=== PATIENT | female | born 2000 | race Hispanic/Latino ===

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

== ENCOUNTER 2021-11-05 00:57 | Inpatient (IN) | payer OTHER ==
[~2021-11-05] VITALS: Ht 157.5 cm; Wt 77.6 kg
[2021-11-05 01:27] LABS: APPEARANCE,URINE Clear (CLEAR); BILIRUBIN,URINE Negative (NEGATIVE); COLOR,URINE Yellow (YELLOW); GLUCOSE, URINE (UA) Negative (NEGATIVE); KETONES,URINE Negative (NEGATIVE); LEUKOCYTE ESTERASE ,URINE Negative (NEGATIVE); NITRATE,URINE Negative (NEGATIVE); OCCULT BLOOD,URINE Negative (NEGATIVE); PROTEIN,URINE Negative (NEGATIVE)
[2021-11-05] MEDS ORDERED: ONDANSETRON 4MG INJ IVP ONE (01:30)
[2021-11-05] MEDS ORDERED: 0.9%NACL 1000ML 1,000 ML IV ONE (01:30)
[2021-11-05] MEDS ORDERED: KETOROLAC 30MG VIAL (30MG/ML) IV ONE (01:30)
[2021-11-05 01:32] LABS: HCG,QUAL RESULT NEGATIVE (NEGATIVE)
[2021-11-05 01:37] LABS: BASOPHILS % (AUTO) 0.5 % (0.0-5.0); EOSINOPHILS % (AUTO) 1.5 % (0.0-8.0); HEMATOCRIT 39.4 % (36-48); LYMPHOCYTES % (AUTO) 32.6 % (21.0-51.0); MEAN CORPUSCULAR HEMOGLOBIN 28.5 pg (27.0-33.0); MEAN CORPUSCULAR HGB CONC 32.7 g/dL (32.0-36.0); MONOCYTES % (AUTO) 6.8 % (3.0-13.0); NEUTROPHILS % (AUTO) 58.4 % (40.0-77.0); PLATELET COUNT (AUTO) 334 K/uL (130-400); RED BLOOD CELL COUNT(AUTO) 4.53 MIL/uL (4.00-5.50); RED CELL DISTRIBUTION WIDTH 13.3 % (11.0-15.5); WHITE BLOOD COUNT (AUTO) 12.4 K/uL (4.8-10.8)
[2021-11-05 01:54] LABS: CREATININE 0.7 mg/dL (0.5-1.5); POTASSIUM 3.6 mmol/L (3.5-5.1)
[2021-11-05 01:57] LABS: ALBUMIN 3.5 g/dL (3.5-5.0); BILIRUBIN,TOTAL 0.2 mg/dL (0.2-1.0); TOTAL PROTEIN, SERUM 7.2 g/dL (6.0-8.3)
[2021-11-05] MEDS ORDERED: ZOSYN 3.375GM +NS 50ML IV SCH (02:30)
[2021-11-05] MEDS: LACTATED RINGERS 1000ML 1,000 ML IV SCH ×3 (03:03→17:50)
[2021-11-05 07:45] VITALS: BP 110/75
[2021-11-05 11:45] VITALS: BP 115/62
[2021-11-05] MEDS: MORPHINE 2 MG SYG IVP PRN (13:22)
[2021-11-05 16:10] VITALS: BP 100/59
[2021-11-05 19:36] VITALS: BP 115/69
[2021-11-05 23:38] VITALS: BP 92/60
[2021-11-06] VITALS (22 sets, daily range): BP systolic 97–143; BP diastolic 57–105
[2021-11-06] MEDS: MORPHINE 2 MG SYG IVP PRN ×2 (01:57→17:57)
[2021-11-06] MEDS: LACTATED RINGERS 1000ML 1,000 ML IV SCH ×2 (04:01→15:56)
[2021-11-06] MEDS ORDERED: ZOSYN 3.375GM +NS 50ML IV SCH (11:30)
[2021-11-06] MEDS: ZOSYN 3.375GM +NS 50ML IV SCH ×2 (12:48→21:00)
[2021-11-06 13:31] LABS: BASOPHILS % (AUTO) 0.7 % (0.0-5.0); EOSINOPHILS % (AUTO) 1.3 % (0.0-8.0); HEMATOCRIT 42.8 % (36-48); LYMPHOCYTES % (AUTO) 29.9 % (21.0-51.0); MEAN CORPUSCULAR HEMOGLOBIN 28.5 pg (27.0-33.0); MEAN CORPUSCULAR HGB CONC 32.7 g/dL (32.0-36.0); MEAN CORPUSCULAR VOLUME 87.2 fL (79-99); MONOCYTES % (AUTO) 6.7 % (3.0-13.0); NEUTROPHILS % (AUTO) 61.1 % (40.0-77.0); PLATELET COUNT (AUTO) 329 K/uL (130-400); RED BLOOD CELL COUNT(AUTO) 4.91 MIL/uL (4.00-5.50); RED CELL DISTRIBUTION WIDTH 13.2 % (11.0-15.5)
[2021-11-06 13:36] LABS: INR 1.17 (0.85-1.15); PROTHROMBIN TIME 12.6 SEC (9.6-11.6)
[2021-11-06 13:37] LABS: PARTIAL THROMBOPLASTIN TIME 33.5 SEC (26.3-35.5)
[2021-11-06 13:39] LABS: CREATININE 0.5 mg/dL (0.5-1.5); POTASSIUM 4.1 mmol/L (3.5-5.1)
[2021-11-06] MEDS ORDERED: MIDAZOLAM HCL 1 MG/ML 2ML VIAL ONE (19:03)
[2021-11-06] MEDS ORDERED: SUCCINYLCHOLINE CHLORIDE 20 MG/ML 10 ML VIAL ONE (19:03)
[2021-11-06] MEDS ORDERED: LIDOCAINE PF 100MG/5ML (2%) SYRINGE 5ML ONE (19:03)
[2021-11-06] MEDS ORDERED: PROPOFOL 10 MG/ML 20ML VIAL IV ONE (19:04)
[2021-11-06] MEDS ORDERED: FENTANYL CITRATE PF 50 MCG/1 ML 2ML VIAL ONE (19:04)
[2021-11-06] MEDS ORDERED: ROCURONIUM 10MG/1ML SYR 10 MG/ML ML ONE (19:04)
[2021-11-06] MEDS ORDERED: TRIAMCINOLONE ACETONIDE 40 MG/ML 1ML VIAL ONE (19:23)
[2021-11-06] MEDS ORDERED: BUPIVACAINE/PF 0.5% 30ML VIAL ONE (19:35)
[2021-11-06] MEDS ORDERED: LIDOCAINE HCL 1% MDV 50ML VIAL ONE (19:36)
[2021-11-06] MEDS ORDERED: PHENYLEPHRINE HCL 10 MG/ML 1ML VIAL IV ONE (20:34)
[2021-11-06] MEDS ORDERED: KETOROLAC 30MG VIAL (30MG/ML) ONE (21:16)
[2021-11-06] MEDS ORDERED: MEPERIDINE-PF 25 MG/ML SYG ONE ×2 (21:17→21:45)
[2021-11-06] MEDS ORDERED: ONDANSETRON 4MG INJ ONE (21:18)
[2021-11-07] VITALS (9 sets, daily range): BP systolic 96–116; BP diastolic 57–71
[2021-11-07] MEDS: MORPHINE 2 MG SYG IVP PRN ×4 (00:41→19:42)
[2021-11-07] MEDS: ACETAMINOPHEN 325 MG TAB PO PRN ×3 (02:59→22:02)
[2021-11-07] MEDS: ZOSYN 3.375GM +NS 50ML IV SCH ×3 (05:09→21:02)
[2021-11-07] MEDS: LACTATED RINGERS 1000ML 1,000 ML IV SCH ×2 (05:17→16:08)
[2021-11-07 05:45] LABS: ALBUMIN 3.2 g/dL (3.5-5.0); BILIRUBIN,TOTAL 3.4 mg/dL (0.2-1.0); TOTAL PROTEIN, SERUM 6.6 g/dL (6.0-8.3)
[2021-11-07 05:58] LABS: BASOPHILS % (AUTO) 0.3 % (0.0-5.0); EOSINOPHILS % (AUTO) 0.2 % (0.0-8.0); HEMATOCRIT 37.2 % (36-48); LYMPHOCYTES % (AUTO) 20.1 % (21.0-51.0); MEAN CORPUSCULAR HEMOGLOBIN 28.4 pg (27.0-33.0); MEAN CORPUSCULAR HGB CONC 32.8 g/dL (32.0-36.0); MEAN CORPUSCULAR VOLUME 86.5 fL (79-99); MONOCYTES % (AUTO) 8.2 % (3.0-13.0); NEUTROPHILS % (AUTO) 70.9 % (40.0-77.0); PLATELET COUNT (AUTO) 316 K/uL (130-400); RED CELL DISTRIBUTION WIDTH 13.2 % (11.0-15.5); WHITE BLOOD COUNT (AUTO) 9.3 K/uL (4.8-10.8)
[2021-11-07 06:17] LABS: ALBUMIN 3.1 g/dL (3.5-5.0); BILIRUBIN,TOTAL 3.3 mg/dL (0.2-1.0); CREATININE 0.6 mg/dL (0.5-1.5); POTASSIUM 3.7 mmol/L (3.5-5.1); TOTAL PROTEIN, SERUM 6.6 g/dL (6.0-8.3)
[2021-11-07] MEDS ORDERED: ONDANSETRON 4MG INJ IVP PRN (11:00)
[2021-11-07] MEDS ORDERED: MAG/ALUM/SIMETH 30 ML UDCUP PO SCH (13:30)
[2021-11-07] MEDS: KETOROLAC 15MG/ML VIAL (15MG/ML) IV PRN ×2 (16:13→22:28)
[2021-11-08] MEDS: LACTATED RINGERS 1000ML 1,000 ML IV SCH ×2 (02:17→13:08)
[2021-11-08 02:55] VITALS: BP 100/57
[2021-11-08] MEDS: ZOSYN 3.375GM +NS 50ML IV SCH ×3 (05:04→21:10)
[2021-11-08] MEDS: KETOROLAC 15MG/ML VIAL (15MG/ML) IV PRN ×3 (05:04→17:59)
[2021-11-08 06:35] LABS: BASOPHILS % (AUTO) 0.7 % (0.0-5.0); EOSINOPHILS % (AUTO) 1.2 % (0.0-8.0); LYMPHOCYTES % (AUTO) 26.3 % (21.0-51.0); MEAN CORPUSCULAR HEMOGLOBIN 27.9 pg (27.0-33.0); MEAN CORPUSCULAR HGB CONC 31.9 g/dL (32.0-36.0); MEAN CORPUSCULAR VOLUME 87.4 fL (79-99); MONOCYTES % (AUTO) 11.6 % (3.0-13.0); NEUTROPHILS % (AUTO) 59.9 % (40.0-77.0); PLATELET COUNT (AUTO) 277 K/uL (130-400); RED BLOOD CELL COUNT(AUTO) 4.12 MIL/uL (4.00-5.50); RED CELL DISTRIBUTION WIDTH 13.3 % (11.0-15.5); WHITE BLOOD COUNT (AUTO) 5.9 K/uL (4.8-10.8)
[2021-11-08 06:47] LABS: ALBUMIN 3.2 g/dL (3.5-5.0); BILIRUBIN,TOTAL 4.8 mg/dL (0.2-1.0); CREATININE 0.6 mg/dL (0.5-1.5); MAGNESIUM 1.9 mg/dL (1.80-2.40); POTASSIUM 3.6 mmol/L (3.5-5.1); TOTAL PROTEIN, SERUM 6.6 g/dL (6.0-8.3)
[2021-11-08 07:26] VITALS: BP 102/64
[2021-11-08] MEDS ORDERED: SIMETHICONE 40 MG/0.6 ML ML PO SCH (08:30)
[2021-11-08] MEDS: MORPHINE 2 MG SYG IVP PRN (08:45)
[2021-11-08 11:20] VITALS: BP 116/70
[2021-11-08 16:35] VITALS: BP 97/60
[2021-11-08 19:38] VITALS: BP 100/69
[2021-11-08] MEDS ORDERED: SIMETHICONE 80 MG TAB.CHEW PO SCH (21:00)
[2021-11-08] MEDS: SIMETHICONE 80 MG TAB.CHEW PO PRN (21:10)
[2021-11-08] MEDS: ACETAMINOPHEN 325 MG TAB PO PRN (21:11)
[2021-11-08 23:13] VITALS: BP 91/60
[2021-11-09] MEDS: LACTATED RINGERS 1000ML 1,000 ML IV SCH ×2 (03:25→06:30)
[2021-11-09 03:28] VITALS: BP 99/55
[2021-11-09] MEDS: ZOSYN 3.375GM +NS 50ML IV SCH ×3 (05:07→21:26)
[2021-11-09 07:30] VITALS: BP 97/59
[2021-11-09] MEDS: SIMETHICONE 80 MG TAB.CHEW PO PRN ×4 (08:51→22:56)
[2021-11-09 09:06] LABS: ALBUMIN 3.3 g/dL (3.5-5.0); BILIRUBIN,DIRECT 1.5 mg/dL (0.0-0.3); BILIRUBIN,TOTAL 2.3 mg/dL (0.2-1.0); CREATININE 0.6 mg/dL (0.5-1.5); POTASSIUM 3.6 mmol/L (3.5-5.1); TOTAL PROTEIN, SERUM 7.1 g/dL (6.0-8.3)
[2021-11-09 11:11] VITALS: BP 117/82
[2021-11-09 16:44] VITALS: BP 102/56
[2021-11-09] MEDS: ACETAMINOPHEN 325 MG TAB PO PRN (16:47)
[2021-11-09 19:38] VITALS: BP 93/57
[2021-11-09 22:51] VITALS: BP 105/73
[2021-11-09] MEDS: KETOROLAC 15MG/ML VIAL (15MG/ML) IV PRN (23:34)
[2021-11-10 03:02] VITALS: BP 99/63
[2021-11-10] MEDS: ZOSYN 3.375GM +NS 50ML IV SCH ×2 (05:27→13:11)
[2021-11-10 07:06] VITALS: BP 95/59
[2021-11-10 07:28] LABS: ALBUMIN 3.1 g/dL (3.5-5.0); BILIRUBIN,TOTAL 1.1 mg/dL (0.2-1.0); CREATININE 0.6 mg/dL (0.5-1.5); POTASSIUM 3.6 mmol/L (3.5-5.1)
[2021-11-10] MEDS: SIMETHICONE 80 MG TAB.CHEW PO PRN ×2 (08:34→13:11)
[2021-11-10 09:00] LABS: BASOPHILS % (AUTO) 0.5 % (0.0-5.0); EOSINOPHILS % (AUTO) 1.6 % (0.0-8.0); HEMATOCRIT 37.2 % (36-48); LYMPHOCYTES % (AUTO) 26.5 % (21.0-51.0); MEAN CORPUSCULAR HEMOGLOBIN 28.8 pg (27.0-33.0); MEAN CORPUSCULAR HGB CONC 32.8 g/dL (32.0-36.0); MEAN CORPUSCULAR VOLUME 87.9 fL (79-99); MONOCYTES % (AUTO) 7.1 % (3.0-13.0); PLATELET COUNT (AUTO) 308 K/uL (130-400); RED BLOOD CELL COUNT(AUTO) 4.23 MIL/uL (4.00-5.50); RED CELL DISTRIBUTION WIDTH 13.7 % (11.0-15.5); WHITE BLOOD COUNT (AUTO) 8.7 K/uL (4.8-10.8)
[2021-11-10 10:54] VITALS: BP 94/58
== END 2021-11-10 15:10 | disposition home or self-care (01) | DRG 419 ==
LOC: EDH 00:57 → EDHIP 02:25 → WSH 07:40
PROVIDERS: ADMIT Internal Medicine; ATTEND Internal Medicine
PROC: 0FT44ZZ Resection of Gallbladder, Percutaneous Endoscopic Approach (ICD-10-PCS; principal; 2021-11-06 19:20)
DX: K80.00 Calculus of gallbladder with acute cholecystitis without obstruction (principal); R79.89 Other specified abnormal findings of blood chemistry; Z20.822 Contact with and (suspected) exposure to COVID-19
CPT/HCPCS: 36415; 71045; 76705; 78226; 80048; 80053; 80076; 81003; 81025; 83690; 83735; 84703; 85025; 85610; 85730; 86850; 86900; 86901; 87635; A9537; G0378; J0330; J1885; J2001; J2175; J2250; J2370; J2405; J2543; J2704; J3010; J3301; J3490; J7030; J7120

== ENCOUNTER 2022-07-03 13:54 | Observation (INO) | payer OTHER, MEDICAID ==
[~2022-07-03] VITALS: Ht 157.5 cm; Wt 87.5 kg
[2022-07-03 13:57] VITALS: BP 112/64
[2022-07-03 14:32] LABS: APPEARANCE,URINE CLEAR (CLEAR); BILIRUBIN,URINE NEGATIVE (NEGATIVE); COLOR,URINE LIGHT-YELLOW (YELLOW); GLUCOSE, URINE (UA) NEGATIVE (NEGATIVE); KETONES,URINE NEGATIVE (NEGATIVE); LEUKOCYTE ESTERASE ,URINE NEGATIVE Leu/uL (NEGATIVE); NITRATE,URINE NEGATIVE (NEGATIVE); OCCULT BLOOD,URINE NEGATIVE (NEGATIVE); PROTEIN,URINE NEGATIVE (NEGATIVE); UROBILINOGEN,URINE 0.2 mg/dL (0.2-1.0)
[2022-07-03 14:47] LABS: RBC,URINE 0-1 /HPF (0-1); SQUAMOUS EPITHELIAL CELL,UR FEW /HPF (0-2); WBC,URINE 0-1 /HPF (0-1)
[2022-07-03] MEDS ORDERED: LACTATED RINGERS 1000ML IV SCH (15:00)
== END 2022-07-03 16:07 | disposition home or self-care (01) ==
LOC: EDH 13:54 → LDH 13:55
PROVIDERS: ADMIT Internal Medicine; ATTEND Internal Medicine
DX: O26.893 Other specified pregnancy related conditions, third trimester (principal); R10.9 Unspecified abdominal pain; O24.419 Gestational diabetes mellitus in pregnancy, unspecified control; Z3A.35 35 weeks gestation of pregnancy
CPT/HCPCS: 96360; 81001; G0378 ×2; G0379; J7120

== ENCOUNTER 2023-12-28 13:00 | Emergency (ER) | payer BC, MEDICAID, OTHER ==
[~2023-12-28] VITALS: Ht 157.5 cm; Wt 70.3 kg
[2023-12-28 14:11] LABS: BASOPHILS # (AUTO) 0.04 K/uL (0.00-0.20); BASOPHILS % (AUTO) 0.3 % (0.0-5.0); EOSINOPHILS # (AUTO) 0.03 K/uL (0.00-0.70); EOSINOPHILS % (AUTO) 0.2 % (0.0-8.0); HEMATOCRIT 44.3 % (36-48); IMMATURE GRANULOCYTE ABSOLUTE 0.05 K/uL (0-1); LYMPHOCYTES # (AUTO) 0.7 K/uL (1.0-4.8); LYMPHOCYTES % (AUTO) 4.6 % (21.0-51.0); MEAN CORPUSCULAR HEMOGLOBIN 28.5 pg (27.0-33.0); MEAN CORPUSCULAR HGB CONC 33.6 g/dL (32.0-36.0); MEAN CORPUSCULAR VOLUME 84.7 fL (79-99); MONOCYTES # (AUTO) 0.6 K/uL (0.1-1.0); MONOCYTES % (AUTO) 3.9 % (3.0-13.0); NEUTROPHILS # (AUTO) 12.9 K/uL (1.8-7.7); NEUTROPHILS % (AUTO) 90.6 % (40.0-77.0); PLATELET COUNT (AUTO) 363 K/uL (130-400); RED BLOOD CELL COUNT(AUTO) 5.23 MIL/uL (4.00-5.50); RED CELL DISTRIBUTION WIDTH 13.9 % (11.0-15.5); WHITE BLOOD COUNT (AUTO) 14.2 K/uL (4.8-10.8)
[2023-12-28] MEDS: 0.9%NACL 1000ML 1,000 ML IV ONE (14:11)
[2023-12-28] MEDS: MORPHINE 2 MG SYG IVP ONE (14:11)
[2023-12-28] MEDS: ONDANSETRON 4MG INJ IVP ONE (14:11)
[2023-12-28 14:13] LABS: APPEARANCE,URINE CLEAR (CLEAR); BILIRUBIN,URINE NEGATIVE (NEGATIVE); COLOR,URINE YELLOW (YELLOW); GLUCOSE, URINE (UA) NEGATIVE (NEGATIVE); KETONES,URINE NEGATIVE (NEGATIVE); LEUKOCYTE ESTERASE ,URINE NEGATIVE Leu/uL (NEGATIVE); NITRATE,URINE NEGATIVE (NEGATIVE); OCCULT BLOOD,URINE SMALL (NEGATIVE); PROTEIN,URINE 20 mg/dL (NEGATIVE); UROBILINOGEN,URINE 0.2 mg/dL (0.2-1.0)
[2023-12-28 14:14] LABS: ADD UA MICROSCOPIC YES
[2023-12-28 14:17] LABS: MUCUS,URINE RARE LPF (None Seen); SQUAMOUS EPITHELIAL CELL,UR RARE /HPF (0-2); WBC,URINE 0-1 /HPF (0-1)
[2023-12-28 14:34] LABS: CREATININE 0.6 mg/dL (0.5-1.0); POTASSIUM 3.8 mmol/L (3.5-5.1)
[2023-12-28 14:38] LABS: BILIRUBIN,TOTAL 0.7 mg/dL (0.2-1.0); TOTAL PROTEIN, SERUM 8.5 g/dL (6.0-8.3)
[2023-12-28] MEDS ORDERED: ONDA4TAB10 PO (16:38)
[2023-12-28 16:42] VITALS: BP 100/66; PULSE 99; RESP 14; O2SAT 97
== END 2023-12-28 16:48 | disposition home or self-care (01) ==
LOC: EDH 13:00
DX: K52.9 Noninfective gastroenteritis and colitis, unspecified (principal); R10.9 Unspecified abdominal pain; R11.2 Nausea with vomiting, unspecified; A05.9 Bacterial foodborne intoxication, unspecified; Z90.49 Acquired absence of other specified parts of digestive tract
CPT/HCPCS: 99284; 96374; 96361; 96375; 80053; 83690; 85025; 81001; 81025; 36415; J2270; J7030; J2405